=== PATIENT | female | born 1945 | race Two or more races ===

== ENCOUNTER 2022-09-10 14:50 | Inpatient (IN) | payer OTHER ==
[~2022-09-10] VITALS: Ht 157.5 cm; Wt 129.7 kg
--- NOTE | 2022-09-10 14:56 | NUR ---
PTE LLEGA EN AMBULANCIA POR ULCERA EN CADERA DERECHA . SE LE GEMA S/V LA CUAL SE DOCUEMTA . PTE NO TIENE MEDICO AQUI Y FAMILIAR NO GOODWIN LLEGADO. SE OBSERVA PTGE DESORIENTADA ,JOSE TRANQUILA. SE ACOMODA EN RAMON.
--- NOTE | 2022-09-10 18:31 | NUR ---
PACIENTE EVALUADA POR DR HAYDEE [place] [facility], [place] TRUJILLO LE ORIENTA A PACIENTE Y FAMILIAR SOBRE EL MISMO Y VERBALIZA ENTNEDER, LE COLECTA MUESTRAS DE LABORATORIO Y LE CANALIZA BAJO MEDIDAS ASPETICAS, LE ADM MED KASSIDY ORDEN. LE COLOCA GOLDBERG CATETER BAJO MEDIDAS ASEPTICAS Y ESTERILES.
[2022-09-22] MEDS ORDERED: CARBIDOPA-LEVO1 EA10 (16:13)
[2022-09-22] MEDS ORDERED: ALENDRONATE SOD35 MG (16:13)
[2022-09-22] MEDS ORDERED: AMLODIPINE BESY10 MG (16:13)
[2022-09-22] MEDS ORDERED: DOXAZOSIN MESYLA1 MG (16:13)
[2022-09-22] MEDS ORDERED: MONTELUKAST SOD10 MG (16:13)
[2022-09-22] MEDS ORDERED: CANDESARTAN CIL32 MG (16:13)
[2022-09-22] MEDS ORDERED: ST. JOSEPH ASPI81 M2 (16:14)
[2022-09-22] MEDS ORDERED: ROSUVASTATIN CA10 MG (16:14)
[2022-09-22] MEDS ORDERED: QUETIAPINE FUMA25 MG (16:14)
[2022-09-22] MEDS ORDERED: RIVASTIGMINE1.5 MG (16:14)
[2022-09-22] MEDS ORDERED: GABAPENTIN300 M2 (16:14)
[2022-09-22] MEDS ORDERED: SERTRALINE HCL50 MG (16:14)
[2022-09-22] MEDS ORDERED: PANTOPRAZOLE SO40 MG (16:14)
[2022-09-22] MEDS ORDERED: TOLTERODINE TART2 MG (16:14)
[2022-09-29] MEDS ORDERED: FUSION PLUS CA1 EACH PO (15:37)
[2022-09-29] MEDS ORDERED: FLUCONAZOLE200 MG PO (15:40)
[2022-09-29] MEDS ORDERED: ALBUTEROL2.5 MG/3 M IH (15:41)
[2022-09-29] MEDS ORDERED: INTESTINEX680 M1 PO ×2 (15:41→15:47)
[2022-09-29] MEDS ORDERED: AMLODIPINE BESY10 MG PO (15:42)
[2022-09-29] MEDS ORDERED: ATACAND32 MG PO (15:42)
[2022-09-29] MEDS ORDERED: SINEMET 25-1001 EACH PO (15:45)
[2022-09-29] MEDS ORDERED: ROSUVASTATIN CA10 MG PO (15:45)
[2022-09-29] MEDS ORDERED: QUETIAPINE FUMA25 MG PO ×2 (15:46)
[2022-09-29] MEDS ORDERED: BUDESONIDE0.5 MG/2 M IH (15:47)
[2022-09-29] MEDS ORDERED: ALENDRONATE SOD35 MG PO (15:48)
[2022-09-29] MEDS ORDERED: PANTOPRAZOLE SO40 MG PO (15:48)
[2022-09-29] MEDS ORDERED: CARdura 2MG TABLET PO (15:49)
[2022-09-29] MEDS ORDERED: CARdura 4MG TABLET PO (15:49)
== END 2022-09-29 16:57 | DRG 570 ==
LOC: ER 14:50 → EDBD 22:04 → MEDJ 22:04
PROVIDERS: Surgery; ADMIT Internal Medicine; ATTEND Internal Medicine
PROC: 3E0F7GC Introduction of Other Therapeutic Substance into Respiratory Tract, Via Natural or Artificial Opening (ICD-10-PCS; 2022-09-11)
PROC: CP1Z1ZZ Planar Nuclear Medicine Imaging of Musculoskeletal System, All using Technetium 99m (Tc-99m) (ICD-10-PCS; 2022-09-12)
PROC: 0JBL0ZZ Excision of Right Upper Leg Subcutaneous Tissue and Fascia, Open Approach (ICD-10-PCS; principal; 2022-09-12 17:00)
PROC: BW28ZZZ Computerized Tomography (CT Scan) of Head (ICD-10-PCS; 2022-09-21)
DX: L89.213 Pressure ulcer of right hip, stage 3 (principal); G92.8 Other toxic encephalopathy; B37.49 Other urogenital candidiasis; L89.212 Pressure ulcer of right hip, stage 2; D63.8 Anemia in other chronic diseases classified elsewhere; B96.29 Other Escherichia coli [E. coli] as the cause of diseases classified elsewhere; B96.4 Proteus (mirabilis) (morganii) as the cause of diseases classified elsewhere; B96.89 Other specified bacterial agents as the cause of diseases classified elsewhere; B95.2 Enterococcus as the cause of diseases classified elsewhere; G31.83 Neurocognitive disorder with Lewy bodies; F02.80 Dementia in other diseases classified elsewhere, unspecified severity, without behavioral disturbance, psychotic disturbance, mood disturbance, and anxiety; G20 Parkinson's disease; Z74.01 Bed confinement status; Z20.822 Contact with and (suspected) exposure to COVID-19

== ENCOUNTER 2022-11-14 18:43 | Emergency (ER) | payer OTHER ==
[~2022-11-14] VITALS: Ht 167.6 cm; Wt 52.2 kg
[~2022-11-14 18:43] MED LIST: ALBUTEROL2.5 MG/3 M IH; ALENDRONATE SOD35 MG; ALENDRONATE SOD35 MG PO; AMLODIPINE BESY10 MG; AMLODIPINE BESY10 MG PO; ATACAND32 MG PO; BUDESONIDE0.5 MG/2 M IH; CANDESARTAN CIL32 MG; CARBIDOPA-LEVO1 EA10; CARdura 2MG TABLET PO; CARdura 4MG TABLET PO; DOXAZOSIN MESYLA1 MG; FLUCONAZOLE200 MG PO; FUSION PLUS CA1 EACH PO; GABAPENTIN300 M2; INTESTINEX680 M1 PO; MONTELUKAST SOD10 MG; PANTOPRAZOLE SO40 MG; PANTOPRAZOLE SO40 MG PO; QUETIAPINE FUMA25 MG; QUETIAPINE FUMA25 MG PO; RIVASTIGMINE1.5 MG; ROSUVASTATIN CA10 MG; ROSUVASTATIN CA10 MG PO; SERTRALINE HCL50 MG; SINEMET 25-1001 EACH PO; ST. JOSEPH ASPI81 M2; TOLTERODINE TART2 MG
== END 2022-11-15 11:18 | disposition home or self-care (01) ==
LOC: ER 18:43
DX: R00.0 Tachycardia, unspecified (principal); Z74.01 Bed confinement status; E86.0 Dehydration; J45.909 Unspecified asthma, uncomplicated; G30.9 Alzheimer's disease, unspecified; F02.80 Dementia in other diseases classified elsewhere, unspecified severity, without behavioral disturbance, psychotic disturbance, mood disturbance, and anxiety; K21.9 Gastro-esophageal reflux disease without esophagitis; I10 Essential (primary) hypertension; G20 Parkinson's disease; L98.419 Non-pressure chronic ulcer of buttock with unspecified severity

== ENCOUNTER 2022-11-28 12:19 | Emergency (ER) | payer OTHER ==
[~2022-11-28] VITALS: Ht 160 cm; Wt 59.0 kg
== END 2022-11-29 10:09 | disposition home or self-care (01) ==
LOC: ER 12:19
DX: R06.82 Tachypnea, not elsewhere classified (principal); L89.219 Pressure ulcer of right hip, unspecified stage; F03.90 Unspecified dementia, unspecified severity, without behavioral disturbance, psychotic disturbance, mood disturbance, and anxiety; I10 Essential (primary) hypertension; Z74.01 Bed confinement status; Z88.0 Allergy status to penicillin

== ENCOUNTER 2022-11-30 19:24 | Inpatient (IN) | payer OTHER ==
[~2022-11-30] VITALS: Ht 157.5 cm; Wt 59.0 kg
--- NOTE | 2022-11-30 19:48 | NUR ---
SE RECIBE PACIENTE DE AMBULANCIA QUIEN REFIERE SE PRESENTA POR DIFICULTAD RESPIRATORIA. PARAMEDICO INDICA FUE TRACE DE JAQUAN EL SHONA DE JOSSIE POR UTI. PTE CON CANULA NASAL @3L. SE MONITOREAN LOS SV Y SE PRESENTA A QUIEN INDICA UBICARLA EN CHEST PAIN. SE REALIZA EKG Y SE PRESENTA A MEDICO.
[2022-12-01] MEDS ORDERED: ROSUVASTATIN CA10 MG (09:38)
[2022-12-17] MEDS ORDERED: METOPROLOL TART50 MG PO (12:48)
[2022-12-17] MEDS ORDERED: CALCIUM 500-VI1 EAC6 PO (12:49)
[2022-12-17] MEDS ORDERED: NORVASC5 MG PO (12:50)
== END 2022-12-17 15:04 | disposition home or self-care (01) | DRG 853 ==
LOC: ER 19:24 → ICU 23:28 → ICU-2 23:28 → ICU 12-01 19:13 → MEDJ 12-02 18:56
PROVIDERS: ADMIT Internal Medicine; ATTEND Internal Medicine
PROC: 4A12X4Z Monitoring of Cardiac Electrical Activity, External Approach (ICD-10-PCS; 2022-12-02)
PROC: 8E0ZXY6 Isolation (ICD-10-PCS; 2022-12-03)
PROC: 30233N1 Transfusion of Nonautologous Red Blood Cells into Peripheral Vein, Percutaneous Approach (ICD-10-PCS; 2022-12-05)
PROC: 02HV33Z Insertion of Infusion Device into Superior Vena Cava, Percutaneous Approach (ICD-10-PCS; 2022-12-05)
PROC: 0DH63UZ Insertion of Feeding Device into Stomach, Percutaneous Approach (ICD-10-PCS; 2022-12-10)
PROC: 0JB70ZZ Excision of Back Subcutaneous Tissue and Fascia, Open Approach (ICD-10-PCS; principal; 2022-12-11)
PROC: 0JBL0ZZ Excision of Right Upper Leg Subcutaneous Tissue and Fascia, Open Approach (ICD-10-PCS; 2022-12-11)
PROC: 3E0G76Z Introduction of Nutritional Substance into Upper GI, Via Natural or Artificial Opening (ICD-10-PCS; 2022-12-12)
DX: A41.51 Sepsis due to Escherichia coli [E. coli] (principal); G92.8 Other toxic encephalopathy; L89.154 Pressure ulcer of sacral region, stage 4; L89.214 Pressure ulcer of right hip, stage 4; L89.153 Pressure ulcer of sacral region, stage 3; L89.893 Pressure ulcer of other site, stage 3; R65.21 Severe sepsis with septic shock; I96 Gangrene, not elsewhere classified; N17.9 Acute kidney failure, unspecified; T83.511A Infection and inflammatory reaction due to indwelling urethral catheter, initial encounter; N39.0 Urinary tract infection, site not specified; Z16.12 Extended spectrum beta lactamase (ESBL) resistance; E46 Unspecified protein-calorie malnutrition; N13.9 Obstructive and reflux uropathy, unspecified; I13.10 Hypertensive heart and chronic kidney disease without heart failure, with stage 1 through stage 4 chronic kidney disease, or unspecified chronic kidney disease; N18.9 Chronic kidney disease, unspecified; E86.0 Dehydration; L89.012 Pressure ulcer of right elbow, stage 2; L08.9 Local infection of the skin and subcutaneous tissue, unspecified; G31.83 Neurocognitive disorder with Lewy bodies; G20 Parkinson's disease; R13.10 Dysphagia, unspecified; R63.39 Other feeding difficulties; Z74.01 Bed confinement status; Z66 Do not resuscitate

== ENCOUNTER 2023-03-09 12:15 | Emergency (ER) | payer OTHER ==
[~2023-03-09] VITALS: Ht 157.5 cm; Wt 36.3 kg
[~2023-03-09 12:15] MED LIST changes: +CALCIUM 500-VI1 EAC6 PO; +METOPROLOL TART50 MG PO; +NORVASC5 MG PO
== END 2023-03-09 13:11 | disposition home or self-care (01) ==
LOC: ER 12:15
DX: K94.23 Gastrostomy malfunction (principal); E78.00 Pure hypercholesterolemia, unspecified; I10 Essential (primary) hypertension; G31.83 Neurocognitive disorder with Lewy bodies; F02.80 Dementia in other diseases classified elsewhere, unspecified severity, without behavioral disturbance, psychotic disturbance, mood disturbance, and anxiety; Z88.0 Allergy status to penicillin; L89.159 Pressure ulcer of sacral region, unspecified stage